=== PATIENT | female | born 1975 ===

== ENCOUNTER 2025-09-07 08:52 | Outpatient (AMB) | payer OTHER, MEDICAID, SELFPAY ==
--- OUTSIDE RECORDS SUMMARY | 2025-09-07 09:16 | XMS_ITS | Clinical Summary ---
Author Organization [address] [facility] Address [address] [place] [address] Phone Care Team Providers Care Clinical Dermatologist Name Role Phone Iqra Reed MD Primary Care Provider [phone] Allergies Active Allergy Reactions Criticality Noted Date Comments Shellfish Containing Products 2023 unknown Olanzapine Anaphylaxis High 09/07/2024 Medications clonazePAM (KlonoPIN) 1 mg tablet 1 bid Active clotrimazole (LOTRIMIN) 1 % cream APPLY DAILY DIRECTED Active multivitamin/ir on/folic acid (SPECTRAVITE ADULT ORAL) [facility] SPECTRAVITE OR TABS 1 po qd Active diazePAM (DIASTAT ACUDIAL) rectal kit Place 20 mg rectally as needed (seizure). Place 20mg rectally as directed /prn seizure - Rectal Active latex gloves (Latex Gloves, Large) [facility] Use as directed up to eight times daily Powder free nitrale Active hydrocortisone (WESTCORT) 0.2 % cream : Apply topically 2 times daily. apply to rash BID - Topical Active ibuprofen (ADVIL,MOTRIN) 600 mg tablet TAKE 1 TABLET BY MOUTH EVERY 8 HOURS NEEDED FOR PAIN Active incontinence pad, liner, disp pad Incontinence Supply Disposable (DISPOSABLE LINERS) MISC use 140/ month 4- 5 per day Active acetaminophen (Mapap, acetaminophen,) 325 mg tablet TAKE 2 TABLETS BY MOUTH EVERY 6 HOURS NEEDED FOR PAIN. Active food supplemt, lactose-reduced 0.04-1.05 gram-kcal/mL liquid Take by mouth. ENSURE NUTRITION SHAKE Take by mouth. Active nystatin (MYCOSTATIN) 100,000 unit/gram powder NYSTATIN, TOPICAL, (MYCOSTATIN) POWD Apply topically. Light dusting to the area/ and on the depends Active omeprazole (PriLOSEC) [address] capsule Take 1 Cap by mouth daily. Do not crush or chew. Active UNABLE TO FIND PADSORBER BED HUDSON LINERS MISC 1 per month Active starch (DIAFOODS THICK-IT #2 ORAL) Take 1 Cap by mouth 3 times daily (with meals). Active valproate (DEPAKENE) 50 mg/mL syrup 3 teaspoons BID Ac tive povidone-iodine (Betadine) 10 % topical solution Apply topically 1 (one) time each day. 473 mL Active Active Problems Problem Noted Date Diagnosed Date Neuroleptic malignant syndrome 09/07/2024 Overview (09/07/2024): h/o NEUROLEPTIC MALIGNANT SYNDROME from [facility], she was left with hand contractions Infantile cerebral palsy ([facility] V24, [facility] V 28) 09/07/2024 Epilepsy ([facility] V24, [facility] V28) 09/07/2024 Bipolar disorder ([facility] V24, [facility] V28) 12/2023 Aspiration pneumonia ([facility] V24, [facility] V28) 09/07/2024 Overview (09/07/2024): aspiration pneumonia 02/2004 and 07/2012 Encounters Date Type Department Care Team Description 07/14/2025 9:00 AM EDT Office Visit Orthopedic Surgery - [address] [address] Ganesh Guillen, DPM Dermatophytosis of nail (Primary Dx); Ingrowing nail from Last 3 Months Immunizations Immunization Administration Dates Next Due Influenza, Unspecified 10/23/2015,10/20/2014 PPD Test 12/24/2001,12/22/2001 Td Tetanus diptheria (Tdvax) 7yo and older 05/31 Social History Tobacco Use Types Packs/Day Years Used Date Smoking Tobacco: Never Assessed Comments Unknown Sex and Gender Information Value Date Recorded Sex Assigned at Not on file Legal Sex Female 5:08 AM EST Gender Identity Not on file Sexual Orientation Not on file Last Filed Vital Signs Vital Sign Reading Time Taken Comments Blood Pressure - - Pulse - - Temperature - - Respiratory Rate - - Oxygen Saturation - - Inhaled Oxygen Concentration - - Weight 61.7 kg (136 lb) 02/17/2025 8:51 AM EDT Height 160 cm (5' 2.99 ) 02/17/2025 8:51 AM EDT Body Mass Index 24.1 02/17/2025 8:51 AM EDT Plan of Treatment Upcoming Encounters Date Type Department Care Team ([facility] st Contact Info) Description 12/08/2025 9:00 AM EST Office Visit Orthopedic Surgery - [place] [address] [address] Ganesh Guillen, DPM [address] [address] Health Maintenance Due Date Last Done Comments Breast Cancer Screening 1977 Colorectal Cancer Screening: Colonoscopy 1977 Hepatitis B Vaccines (1 of 3 - 19+ 3-dose series) 1996 Cervical Cancer Screening: Pap Smear 09/23/2016 09/23/2013 HIV Screening 08/26/2024 Social Influencers of Health Screening 08/26/2024 Depression Screening 10/06/2024 COVID-19 Vaccine ( season) 2025 12/14/2020, 11/16/2020 Influenza Vaccine (#1) 2025 , 09/18/2023, 10/04/2019, Additional history exists DTaP,Tdap,and Td Vaccines (4 - Td or Tdap) 10/02/2028 10/02/2018, 05/31/2005, 10/06/2004 RSV Immunization Adult Patients (1 - 1-dose 75+ series) 2052 Hepatitis C Screening Completed 06/06/2006 Pneumococcal Vaccine: Pediatrics (0 to 5 Years) and At-Risk Patients (6 to 49 Years) Aged Out 10/06/2011 No longer eligible based on patient's age to complete this topic HIB Vaccines Aged Out No longer eligi ble based on patient's age to complete this topic HPV Vaccines Aged Out No longer eligi ble based on patient's age to complete this topic Hepatitis A Vaccines Aged Out No long er eligible based on patient's age to complete this topic IPV Vaccines Aged Out No longer eligi ble based on patient's age to complete this topic MMR Vaccines Aged Out No longer eligi ble based on patient's age to complete this topic Meningococcal ACWY Vaccine Aged Out N o longer eligible based on patient's age to complete this topic Meningococcal B Vaccine Aged Out No l onger eligible based on patient's age to complete this topic RSV Immunization Patients Under 20 months Aged Out No longer eligible based on patient's age to complete this topic Varicella Vaccines Aged Out No longer eligible based on patient's age to complete this topic Procedures Procedure Name Priority Date/Time Associated Diagnosis Comments PAP SMEAR Routine 09/23/2013 HEPATITIS C SCREENING Routine 06/06/2006 from Last 3 Months or Most Recently Relevant to Health Maintenance Results * Pap Smear (09/23/2013) Pap smear Abstracted, Negative Historical Provider HEALTH MAINTENANCE Final Result * Hepatitis C Screening (06/06/2006) Hepatitis C Screening Abstracted Historical Provider HEALTH MAINTENANCE Final Result from Last 3 Months or Most Recently Relevant to Health Maintenance Insurance [employer] [place] [employer] Care Teams Clinical Dermatologist Relationship Specialty Start Date End Date Iqra Reed MD [address] [place] [address] PCP - General Internal Medicine 08/26/24
--- NOTE | 2025-09-07 09:37 | A.OFFVIS_ITS ---
Intake Visit Reasons: F/U Allergies olanzapine (From ZYPREXA) Allergy (Severe, Unverified 06/22/20 15:40) ANAPHYLAXIS HPI Comments Details: This is a 50-year-old woman who is here with her caregiver of 7 years.? 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 She cannot communicate, but follows simple commands.? She'll occasionally use words like okay.? She is restless and walking around, picking up up things.? There have been no major behavioral problems other than her restlessness.? The caregiver wants to know if her Depakote dose can be reduced since she's been on this dose for ?17 years without any seizure recurrence. Last visit I reduced her to 7.5 mL b.i.d. and she has had no seizure recurrence. Today we will reduce it further to 5 mL b.i.d.. She is having some problems with dysphagia and is seeing gastroenterology for it. [facility] Medical History (Updated 09/07/25 @ 09:41 by Yazan Germain MD) Mild anoxic-ischemic brain injury Seizure disorder Cerebral palsy Review of Systems Const Details: Sleep:? Difficulty getting to sleepdenies.? Difficulty maintaining sleepdenies?.? Urge to move legsdenies.? Teeth grindingdenies.? Shouting or Kicking during sleep denies.? Abnormal behavior during sleepdenies.? Excessive sleepdenies.? Snoring denies.? Daytime sleepinessdenies. ???General/Constitutional:? Change in appetitedenies.? Chillsdenies.? Fatiguedenies.? Feverdenies.? Weight gaindenies.? Weight lossdenies. ???Ophthalmologic:? Blurred visiondenies.? Diminished visual acuitydenies. ???ENT:? Stuffinessdenies.? Decreased hearingdenies.? Dry mouthdenies.? Ear paindenies.? Nosebleeddenies.? Ringing in the earsdenies.? Sinus paindenies.? Sore throat denies.? Swollen glandsdenies. ???Endocrine:? Cold intolerancedenies.? Excessive thirstdenies.? Frequent urinationdenies.? Heat intolerancedenies. ???Respiratory:? Shortness of breathdenies.? Chest paindenies.? Coughdenies. ???Breast:? Breast lumpdenies.? Nipple dischargedenies. ???Cardiovascular:? Chest pain at restdenies.? Chest pain with exertiondenies.? Claudicationdenies .? Dizzinessdenies.? Fluid accumulation in the legsdenies.? Irregular heartbeat denies.? Palpitationsdenies. ???Gastrointestinal:? Abdominal paindenies.? Constipationdenies.? Diarrheadenies.? Difficulty swallowingdenies.? Heartburndenies.? Nauseadenies.? Rectal bleedingdenies. ???Hematology:? Easy bruisingdenies.? Prolonged bleedingdenies. ???Genitourinary:? Frequent urinationdenies.? Urgencydenies.? Incontinencedenies.? Erectile Dysfunctiondenies. ???Musculoskeletal:? Neck paindenies.? Back paindenies.? Muscle achesdenies.? Painful jointsdenies.? Sciaticadenies.? Weaknessdenies. ???Podiatric:? Difficulty walkingdenies.? Foot numbnessdenies. ???Neurologic:? Difficulty swallowingdenies.? Balance difficultydenies.? Coordinationnormal.? Difficulty speakingdenies.? Dizzinessdenies.? Faintingdenies.? Gait abnormality denies.? Headachedenies.? Loss of strengthdenies.? Loss of use of extremity denies.? Low back paindenies.? Memory lossdenies.? Seizuresdenies.? Ticsdenies.? Tingling/Numbnessdenies.? Transient loss of visiondenies.? Tremordenies. ???Psychiatric:? Anxietydenies.? Auditory/visual hallucinationsdenies.? Delusionsdenies.? Depressed mooddenies.? Stressorsdenies.? Substance abusedenies.? Suicidal thoughtsdenies. Physical Exam Neuro Other: Neurological: Abnormal neurological findings:??limited exam because of poor cooperation.? She constantly walks around keeping her fingers flexed to whether some of her into the palm.? She was occasionally grunts and sometimes makes some sounds.? She will occasionally follow one-step command..?Mental Status:??alert and oriented X 3,?Normal attention, orientation, memory and affect.?Cranial Nerves:??Pupils are equal, round and reactive to light. Fundoscopy shows normal disc bilaterally. External occular muscles are intact. Visual diaz are full, no ptosis. Face is symmetrical, no facial weakness or droop. Facial sensations are normal. Tongue protrudes in midline. Palate elevates symmetrically. Shoulder shrugging is normal..?Motor Examination:??Normal muscle tone, bulk and strength,?No atrophy or fasciculations,?No drift of the extended upper extremities,?Deep tendon reflexes are 2+?,?Plantars are flexor?.?Motor Strength:?Proximal Muscles (out of 5):5Distal Muscles (out of 5):5Neck Flexors (out of 5):5Neck Extensors (out of 5):5Deltoid (out of 5):5Biceps (out of 5):5Triceps (out of 5):5Serratus Anterior (out of 5):5Wrist Extensors (out of 5):5APB (out of 5):5Finger Spread (out of 5):5Ileopsoas (out of 5):5Quadriceps (out of 5):5Hamstrings (out of 5):5Tibialis Anterior (out of 5):5Peronei (out of 5):5EDB (out of 5):5Gastrocnemius (out of 5):5Straight Leg Raising:??90 degrees.?Sensory Exam:??Normal light touch, temperature, pinprick, vibration and joint-position sensations?,?Rhomberg sign is absent.?Coordination:??no ataxia,?no titubation,?[id number], cqtl-[id number]-[id number] test and rapid alternating movements were normal.?Gait Exam:??Within normal limits.?Cerebellar Signs:??[id number] and tymk-td-hupt is normal,?no dysdiadochokinesia?.?Extrapyramidal System:??No tremor, rigidity with normal facial expressions,?No bradykinesia, no bradyphrenia. Normal arm swing and posture. No propulsion or retropulsion.?Speech:??Normal,?no dysphasia or dysarthria..? Mini Mental Status Exam: Level of Consciousness:??Alert.?Orientation:??unable.?Registration:??unable.?Attention:?? unable.?Recall:??unable.?Language:??Normal spontaneous speech, fluency, repetition,naming, comprehension, reading and writing.?Total Score:??30/30.? General Examination: GENERAL APPEARANCE:??normal,?in no acute distress.?HEAD:??normocephalic,?atraumatic.?EYES:??sclera non-icteric,?co njunctiva clear.?EARS:??auditory canal clear,?tympanic membrane intact, clear.?NOSE:??no lesions.?ORAL CAVITY:??gums normal,?mucosa moist,?no lesions.?THROAT:??clear.?NECK/THYROID:??no cervical lymphadenopathy,?thyroid normal,?neck supple, full range of motion,?no carotid bruit.?SKIN:??no rashes,?no significant birthmarks.? Assessment & Plan Assessment & Plan (1) Cerebral palsy: Code(s): G80.9 - Cerebral palsy, unspecified Category: Medical (2) Seizure disorder: Code(s): G40.909 - Epilepsy, unspecified, not intractable, without status epilepticus Category: Medical (3) Mild anoxic-ischemic brain injury: Code(s): P91.61 - Mild hypoxic ischemic encephalopathy [HIE] Category: Medical Plan Reduce Valproic acid to 5ml ( 250mg) twice a day Medications: Changed From valproic acid (as sodium salt) 375 mg (7.5 mL) PO BID 30 days 450 mL 5RF To valproic acid (as sodium salt) 250 mg (5 mL) PO BID 300 mL 5RF 30 days Coding Level of Care Code Est Pt Level 4 (81399) Diagnoses Cerebral palsy G80.9 Seizure disorder G40.909 Mild anoxic-ischemic brain injury P91.61
== END 2025-09-07 09:51 | disposition home or self-care (01) ==
LOC: HO.HSM 08:53
PROVIDERS: PCP Internal Medicine; Visit Provider Psychiatry & Neurology Neurology
DX: G80.9 Cerebral palsy, unspecified (principal); G40.909 Epilepsy, unspecified, not intractable, without status epilepticus; P91.61 Mild hypoxic ischemic encephalopathy [HIE]
CPT/HCPCS: 99214